=== PATIENT | male | born 1965 | race Two or more races ===

== ENCOUNTER 2020-12-18 09:49 | Inpatient (IN) | payer OTHER ==
[~2020-12-18] VITALS: Ht 170.2 cm; Wt 100.5 kg
[2020-12-18] MEDS ORDERED: QUET50TA15 PO (10:28)
[2020-12-18] MEDS ORDERED: OLAN2.5T29 PO (10:28)
[2020-12-18] MEDS ORDERED: CLON-592 PO (10:28)
[2020-12-18 11:18] LABS: COVID AG,FIA SOURCE NASOPHARYNGEAL
[2020-12-18 11:28] LABS: AMPHET/METH SCREEN,URINE POSITIVE (NEGATIVE); BARBITURATE SCREEN, URINE NEGATIVE (NEGATIVE); BENZODIAZEPINES SCREEN,URINE NEGATIVE (NEGATIVE); CANNABINOID SCREEN,URINE NEGATIVE (NEGATIVE); COCAINE SCREEN,URINE NEGATIVE (NEGATIVE); METHADONE SCREEN, URINE NEGATIVE (NEGATIVE); OPIATE SCREEN,URINE POSITIVE (NEGATIVE)
[2020-12-18 11:40] LABS: APPEARANCE,URINE CLEAR (CLEAR); BILIRUBIN,URINE NEGATIVE (NEGATIVE); GLUCOSE, URINE (UA) NEGATIVE (NEGATIVE); KETONES,URINE NEGATIVE (NEGATIVE); LEUKOCYTE ESTERASE ,URINE NEGATIVE (NEGATIVE); NITRATE,URINE NEGATIVE (NEGATIVE); OCCULT BLOOD,URINE NEGATIVE (NEGATIVE); PH,URINE 7.5 (5.0-8.0); PROTEIN,URINE NEGATIVE (NEGATIVE)
[2020-12-18 11:43] LABS: BASOPHILS % (AUTO) 0.4 % (0.0-2.0); EOSINOPHILS % (AUTO) 4.8 % (1.0-6.0); HEMATOCRIT 39.6 % (41-53); HEMOGLOBIN 13.1 g/dL (13.5-17.5); LYMPHOCYTES # (AUTO) 0.7 K/uL (1.0-4.8); LYMPHOCYTES % (AUTO) 13.3 % (22.0-44.0); MEAN CORPUSCULAR HGB CONC 33.1 G/dL (31.0-37.0); MEAN CORPUSCULAR VOLUME 97 fL (80-100); MONOCYTES # (AUTO) 0.8 K/uL (0.1-1.0); MONOCYTES % (AUTO) 15.5 % (2.0-9.0); NEUTROPHILS # (AUTO) 3.3 K/uL (1.8-7.7); PLATELET COUNT (AUTO) 197 K/uL (150-450); RED BLOOD CELL COUNT(AUTO) 4.09 MIL/uL (4.50-5.90); RED CELL DISTRIBUTION WIDTH 14.7 % (11.5-14.5)
[2020-12-18 11:45] LABS: BACTERIA,URINE None Seen /HPF (None Seen); PHENCYCLIDINE SCREEN,URINE NEGATIVE (NEGATIVE); RBC,URINE None Seen /HPF (0-2); SQUAMOUS EPITHELIAL CELL,UR None Seen /LPF (None Seen); WBC,URINE None Seen /HPF (0-5)
[2020-12-18] MEDS ORDERED: CloNIDine HCL 0.1 MG TABLET PO PRN (11:45)
[2020-12-18] MEDS ORDERED: ONDANSETRON HCL 4 MG TABLET PO PRN (11:45)
[2020-12-18] MEDS ORDERED: DOCUSATE SODIUM 100 MG CAPSULE PO PRN (11:45)
[2020-12-18] MEDS ORDERED: PETROLATUM,WHITE 28 GM JELLY TP PRN (11:45)
[2020-12-18] MEDS ORDERED: MAGNESIUM HYDROXIDE SUSPENSION 30 ML UDCUP PO PRN (11:45)
[2020-12-18] MEDS ORDERED: NICOTINE 14 MG/24 HOUR PATCH TD PRN (11:45)
[2020-12-18] MEDS ORDERED: IBUPROFEN 400 MG TABLET PO PRN (11:45)
[2020-12-18] MEDS ORDERED: ALBUTEROL SULFATE HFA 90 MCG/PUFF 8 GM INHALER IH PRN (11:45)
[2020-12-18] MEDS ORDERED: MAG HYDROX/AL HYDROX/SIMETH ES 30 ML SUSPENSION UDCUP PO PRN (11:45)
[2020-12-18 11:56] LABS: ANION GAP 8 mmol/L (8-16); CALCIUM, TOTAL 8.3 mg/dL (8.8-10.5); CARBON DIOXIDE 30 mmol/L (22-29); CHLORIDE 106 mmol/L (98-107); CREATININE 0.92 mg/dL (0.60-1.30); GLOMERULAR FILTR. RATE CALC > 60 mL/min (>60); GLUCOSE,RANDOM 88 mg/dL (70-110); SODIUM SERUM 144 mmol/L (136-145); UREA NITROGEN, BLOOD 13 mg/dL (7-18)
[2020-12-18 11:58] LABS: B-TYPE NATRIURETIC PEPTIDE 54 pg/mL (0-100)
[2020-12-18 12:18] LABS: ALANINE AMINOTRANSFERASE 45 U/L (12-78); ALBUMIN 3.1 g/dL (3.4-5.0); ALKALINE PHOSPHATASE 73 U/L (46-116); ASPARTATE AMINOTRANSFERASE 58 U/L (15-37); BILIRUBIN,TOTAL 0.3 mg/dL (0.1-1.0); CREATINE KINASE, TOTAL ONLY 498 U/L (39-308); LIPASE 213 U/L (73-393); TOTAL PROTEIN, SERUM 7.8 g/dL (6.4-8.2)
[2020-12-18 12:25] LABS: PROSTATE SPECIFIC ANTIGEN 1.15 ng/mL (0.00-4.00)
[2020-12-18] MEDS ORDERED: *CLINICAL-LEVOFLOXACIN IVPB DOSING CLINICAL ONE (13:15)
[2020-12-18] MEDS ORDERED: SODIUM CHLORIDE 0.9% 1,000 ML IV ONE (13:15)
[2020-12-18 14:08] VITALS: BP 135/88
[2020-12-18] MEDS: LEVOFLOXACIN 500 MG/D5% WATER 100 ML IV SCH (18:35)
[2020-12-18 20:05] VITALS: BP 129/74
[2020-12-18] MEDS: ACETAMINOPHEN 325 MG TABLET PO PRN (21:10)
[2020-12-19 05:20] VITALS: BP 141/87
[2020-12-19] MEDS: ACETAMINOPHEN 325 MG TABLET PO PRN ×2 (05:20→09:03)
[2020-12-19 06:54] LABS: CHOL/HDL RATIO 3.4 (4.2-7.3)
[2020-12-19] MEDS ORDERED: HydrOXYzine PAMOATE 25 MG CAPSULE PO PRN (07:45)
[2020-12-19 08:06] LABS: HIV 1-2 SCREEN 4TH GEN W/RFLX Non Reactive (Non Reactive)
[2020-12-19 08:07] VITALS: BP 140/69
[2020-12-19] MEDS: GuaiFENesin/D-METHORPHAN [SUGAR-FREE] 200-20MG/10 ML SYRUP UDCUP PO PRN (09:04)
[2020-12-19] MEDS: QUEtiapine FUMARATE 25 MG TABLET PO SCH (09:05)
[2020-12-19] MEDS: LEVOFLOXACIN 500 MG/D5% WATER 100 ML IV SCH (14:06)
[2020-12-19 15:35] VITALS: BP 137/77
[2020-12-19 19:40] VITALS: BP 137/87
[2020-12-19] MEDS: QUEtiapine FUMARATE 100 MG TABLET PO SCH (19:43)
[2020-12-20 07:39] VITALS: BP 140/94
[2020-12-20] MEDS: QUEtiapine FUMARATE 25 MG TABLET PO SCH (08:00)
[2020-12-20] MEDS: ACETAMINOPHEN 325 MG TABLET PO PRN ×2 (08:00→18:39)
[2020-12-20] MEDS: GuaiFENesin/D-METHORPHAN [SUGAR-FREE] 200-20MG/10 ML SYRUP UDCUP PO PRN (11:37)
[2020-12-20 11:48] VITALS: BP 121/93
[2020-12-20] MEDS: LEVOFLOXACIN 500 MG/D5% WATER 100 ML IV SCH (15:25)
[2020-12-20] MEDS: TraZODone HCL 100 MG TABLET PO PRN (19:46)
[2020-12-20] MEDS: QUEtiapine FUMARATE 100 MG TABLET PO SCH (19:46)
[2020-12-21] MEDS: QUEtiapine FUMARATE 25 MG TABLET PO SCH (08:08)
[2020-12-21] MEDS: GuaiFENesin/D-METHORPHAN [SUGAR-FREE] 200-20MG/10 ML SYRUP UDCUP PO PRN ×2 (08:43→16:23)
[2020-12-21] MEDS: ACETAMINOPHEN 325 MG TABLET PO PRN (08:43)
[2020-12-21] MEDS: LEVOFLOXACIN 500 MG/D5% WATER 100 ML IV SCH (14:44)
[2020-12-21 15:38] VITALS: BP 117/72
[2020-12-21] MEDS: TraZODone HCL 100 MG TABLET PO PRN (20:02)
[2020-12-21] MEDS: QUEtiapine FUMARATE 100 MG TABLET PO SCH (20:02)
[2020-12-21 20:05] VITALS: BP_SYST 103; BP_SYST 128; BP_DIAS 66; BP_DIAS 83
[2020-12-22 08:04] VITALS: BP 122/92
[2020-12-22] MEDS: QUEtiapine FUMARATE 25 MG TABLET PO SCH (08:13)
[2020-12-22] MEDS: ACETAMINOPHEN 325 MG TABLET PO PRN ×2 (08:15→15:42)
[2020-12-22] MEDS: GuaiFENesin/D-METHORPHAN [SUGAR-FREE] 200-20MG/10 ML SYRUP UDCUP PO PRN ×2 (08:16→15:44)
[2020-12-22 11:07] LABS: HEPATITIS C AB (EIA) >11.0 s/co ratio (0.0-0.9); HEPATITIS C RT-PCR,QNT 2490000 IU/mL
[2020-12-22] MEDS ORDERED: LEVO-72 PO (11:20)
[2020-12-22] MEDS ORDERED: QUET100T PO (11:21)
[2020-12-22] MEDS ORDERED: QUET25TA PO (11:21)
== END 2020-12-22 15:56 | DRG 603 ==
LOC: EMS 10:01 → 6S 11:43
PROVIDERS: ADMIT Internal Medicine; ATTEND Internal Medicine
DX: L03.116 Cellulitis of left lower limb (principal); F19.20 Other psychoactive substance dependence, uncomplicated; F20.0 Paranoid schizophrenia; R45.851 Suicidal ideations; F31.4 Bipolar disorder, current episode depressed, severe, without psychotic features; L03.115 Cellulitis of right lower limb; K74.60 Unspecified cirrhosis of liver; Z20.822 Contact with and (suspected) exposure to COVID-19; F43.10 Post-traumatic stress disorder, unspecified; F31.9 Bipolar disorder, unspecified; Z88.8 Allergy status to other drugs, medicaments and biological substances; Q90.9 Down syndrome, unspecified; Z87.891 Personal history of nicotine dependence
CPT/HCPCS: 71045; 80053; 80061; 80074; 81001; 82550; 83605; 83690; 83880; 84153; 84484; 85025; 87040; 87081; 87389; 87522; 93005; 99285; G0480; J1956; J7030; 36415-L1; 36415-TC

== ENCOUNTER 2021-02-10 18:48 | Inpatient (IN) | payer OTHER ==
[~2021-02-10] VITALS: Ht 170.2 cm; Wt 81.8 kg
[~2021-02-10 18:48] MED LIST: LEVO-72 PO; QUET100T PO; QUET25TA PO
[2021-02-10 20:02] LABS: BASOPHILS % (AUTO) 0.5 % (0.0-2.0); EOSINOPHILS % (AUTO) 1.8 % (1.0-6.0); HEMATOCRIT 49.4 % (41-53); LYMPHOCYTES # (AUTO) 3.5 K/uL (1.0-4.8); LYMPHOCYTES % (AUTO) 33.3 % (22.0-44.0); MEAN CORPUSCULAR HEMOGLOBIN 31.2 pg (26.0-34.0); MEAN CORPUSCULAR HGB CONC 34.4 G/dL (31.0-37.0); MEAN CORPUSCULAR VOLUME 90 fL (80-100); MONOCYTES # (AUTO) 0.9 K/uL (0.1-1.0); MONOCYTES % (AUTO) 8.4 % (2.0-9.0); NEUTROPHILS # (AUTO) 5.8 K/uL (1.8-7.7); PLATELET COUNT (AUTO) 232 K/uL (150-450); RED BLOOD CELL COUNT(AUTO) 5.46 MIL/uL (4.50-5.90); RED CELL DISTRIBUTION WIDTH 13.8 % (11.5-14.5)
[2021-02-10 20:14] LABS: ANION GAP 9 mmol/L (8-16); CALCIUM, TOTAL 9.1 mg/dL (8.8-10.5); CARBON DIOXIDE 29 mmol/L (22-29); CHLORIDE 104 mmol/L (98-107); CREATININE 0.94 mg/dL (0.60-1.30); GLOMERULAR FILTR. RATE CALC > 60 mL/min (>60); GLUCOSE,RANDOM 91 mg/dL (70-110); POTASSIUM 4.1 mmol/L (3.5-5.1); SODIUM SERUM 142 mmol/L (136-145); UREA NITROGEN, BLOOD 20 mg/dL (7-18)
[2021-02-10 20:20] LABS: ALANINE AMINOTRANSFERASE 48 U/L (12-78); ALKALINE PHOSPHATASE 67 U/L (46-116); ASPARTATE AMINOTRANSFERASE 35 U/L (15-37); BILIRUBIN,TOTAL 0.6 mg/dL (0.1-1.0); TOTAL PROTEIN, SERUM 8.4 g/dL (6.4-8.2)
[2021-02-10] MEDS ORDERED: ACETAMINOPHEN 325 MG TABLET PO PRN ×2 (22:15→22:30)
[2021-02-10] MEDS ORDERED: ONDANSETRON HCL 4 MG/2 ML VIAL IVP PRN (22:15)
[2021-02-10] MEDS ORDERED: MAGNESIUM HYDROXIDE SUSPENSION 30 ML UDCUP PO PRN (22:30)
[2021-02-10] MEDS ORDERED: FLUO20CA36 PO (23:51)
[2021-02-10] MEDS ORDERED: OLAN10TA74 PO (23:51)
[2021-02-11 00:27] LABS: COVID AG,FIA SOURCE NASOPHARYNGEAL
[2021-02-11] MEDS: FAMOTIDINE 20 MG TABLET PO SCH (08:08)
[2021-02-11 10:26] VITALS: BP 129/93
[2021-02-11 19:43] VITALS: BP 112/66
[2021-02-11] MEDS: ZOLPIDEM TARTRATE 5 MG TABLET PO PRN (20:57)
[2021-02-12 04:05] VITALS: BP 101/69
[2021-02-12 08:05] VITALS: BP 110/72
[2021-02-12] MEDS: FAMOTIDINE 20 MG TABLET PO SCH (09:39)
[2021-02-12 20:06] VITALS: BP 114/76
[2021-02-12] MEDS: TraZODone HCL 50 MG TABLET PO SCH (20:53)
[2021-02-12] MEDS: OLANZapine 10 MG TABLET PO SCH (20:54)
[2021-02-12] MEDS: FLUoxetine HCL 20 MG CAPSULE PO SCH (20:54)
[2021-02-12] MEDS: ZOLPIDEM TARTRATE 5 MG TABLET PO PRN (22:06)
[2021-02-13 08:15] VITALS: BP 113/65
[2021-02-13] MEDS: FAMOTIDINE 20 MG TABLET PO SCH (08:42)
[2021-02-13 20:00] VITALS: BP 99/72
[2021-02-13 20:27] VITALS: BP 105/64
[2021-02-13] MEDS: FLUoxetine HCL 20 MG CAPSULE PO SCH (20:29)
[2021-02-13] MEDS: TraZODone HCL 50 MG TABLET PO SCH (20:29)
[2021-02-13] MEDS: OLANZapine 10 MG TABLET PO SCH (20:29)
[2021-02-14 04:12] VITALS: BP 100/74
[2021-02-14 07:34] VITALS: BP 102/69
[2021-02-14] MEDS: FAMOTIDINE 20 MG TABLET PO SCH (08:20)
[2021-02-14 19:35] VITALS: BP 102/75
[2021-02-14] MEDS: OLANZapine 10 MG TABLET PO SCH (20:05)
[2021-02-14] MEDS: TraZODone HCL 50 MG TABLET PO SCH (20:05)
[2021-02-14] MEDS: FLUoxetine HCL 20 MG CAPSULE PO SCH (20:05)
[2021-02-15 05:19] VITALS: BP 98/66
[2021-02-15 07:17] VITALS: BP 105/57
[2021-02-15] MEDS: FAMOTIDINE 20 MG TABLET PO SCH (08:11)
[2021-02-15 15:37] VITALS: BP 117/69
[2021-02-15 20:00] VITALS: BP 107/70
[2021-02-15] MEDS: TraZODone HCL 50 MG TABLET PO SCH (20:24)
[2021-02-15] MEDS: OLANZapine 10 MG TABLET PO SCH (20:25)
[2021-02-15] MEDS: FLUoxetine HCL 20 MG CAPSULE PO SCH (20:25)
[2021-02-16 04:19] VITALS: BP 104/75
[2021-02-16 07:43] VITALS: BP 123/86
[2021-02-16] MEDS: FAMOTIDINE 20 MG TABLET PO SCH (07:58)
[2021-02-16 15:52] VITALS: BP 103/66
== END 2021-02-16 18:35 | DRG 885 ==
LOC: EMS 18:51 → 6S 02-11 09:05
PROVIDERS: ADMIT Internal Medicine; ATTEND Internal Medicine
DX: F20.9 Schizophrenia, unspecified (principal); F11.20 Opioid dependence, uncomplicated; F32.9 Major depressive disorder, single episode, unspecified; F43.10 Post-traumatic stress disorder, unspecified; K74.60 Unspecified cirrhosis of liver; B19.20 Unspecified viral hepatitis C without hepatic coma; F17.210 Nicotine dependence, cigarettes, uncomplicated; Z20.822 Contact with and (suspected) exposure to COVID-19; F14.90 Cocaine use, unspecified, uncomplicated; F32.A Depression, unspecified; F41.9 Anxiety disorder, unspecified; Z86.19 Personal history of other infectious and parasitic diseases; Z88.8 Allergy status to other drugs, medicaments and biological substances; Z98.890 Other specified postprocedural states; Z71.89 Other specified counseling
CPT/HCPCS: 80053; 85025; 99285; G0480

== ENCOUNTER 2021-03-03 18:52 | Inpatient (IN) | payer OTHER ==
[~2021-03-03] VITALS: Ht 167.6 cm; Wt 87.3 kg
[~2021-03-03 18:52] MED LIST changes: +FLUO20CA36 PO; -LEVO-72 PO; +OLAN10TA74 PO; -QUET100T PO; -QUET25TA PO
[2021-03-03 19:49] LABS: BASOPHILS % (AUTO) 0.4 % (0.0-2.0); EOSINOPHILS % (AUTO) 1.9 % (1.0-6.0); HEMATOCRIT 48.6 % (41-53); HEMOGLOBIN 16.7 g/dL (13.5-17.5); LYMPHOCYTES # (AUTO) 2.1 K/uL (1.0-4.8); LYMPHOCYTES % (AUTO) 22.5 % (22.0-44.0); MEAN CORPUSCULAR HEMOGLOBIN 31.1 pg (26.0-34.0); MEAN CORPUSCULAR HGB CONC 34.3 G/dL (31.0-37.0); MEAN CORPUSCULAR VOLUME 91 fL (80-100); MONOCYTES # (AUTO) 1.1 K/uL (0.1-1.0); MONOCYTES % (AUTO) 11.1 % (2.0-9.0); NEUTROPHILS # (AUTO) 6.1 K/uL (1.8-7.7); NEUTROPHILS % (AUTO) 64.1 % (40.0-70.0); PLATELET COUNT (AUTO) 198 K/uL (150-450); RED BLOOD CELL COUNT(AUTO) 5.36 MIL/uL (4.50-5.90); RED CELL DISTRIBUTION WIDTH 14.2 % (11.5-14.5)
[2021-03-03] MEDS ORDERED: ONDANSETRON HCL 4 MG/2 ML VIAL IVP PRN (20:00)
[2021-03-03] MEDS ORDERED: ACETAMINOPHEN 325 MG TABLET PO PRN (20:00)
[2021-03-03 20:10] LABS: ANION GAP 6 mmol/L (8-16); CALCIUM, TOTAL 8.8 mg/dL (8.8-10.5); CARBON DIOXIDE 29 mmol/L (22-29); CHLORIDE 105 mmol/L (98-107); CREATININE 0.88 mg/dL (0.60-1.30); GLOMERULAR FILTR. RATE CALC > 60 mL/min (>60); GLUCOSE,RANDOM 155 mg/dL (70-110); POTASSIUM 3.7 mmol/L (3.5-5.1); SODIUM SERUM 140 mmol/L (136-145); UREA NITROGEN, BLOOD 15 mg/dL (7-18)
[2021-03-03 20:15] LABS: ALANINE AMINOTRANSFERASE 43 U/L (12-78); ALBUMIN 3.9 g/dL (3.4-5.0); ALKALINE PHOSPHATASE 75 U/L (46-116); ASPARTATE AMINOTRANSFERASE 28 U/L (15-37); BILIRUBIN,TOTAL 0.3 mg/dL (0.1-1.0); TOTAL PROTEIN, SERUM 8.3 g/dL (6.4-8.2)
[2021-03-03 23:54] LABS: COVID AG,FIA SOURCE NASOPHARYNGEAL
[2021-03-04] MEDS ORDERED: ZOLP-280 PO (00:04)
[2021-03-04] MEDS: HEPARIN SODIUM,PORCINE 5,000 UNITS/ML VIAL SQ SCH ×3 (00:17→16:24)
[2021-03-04 00:58] VITALS: BP 127/88
[2021-03-04 01:05] LABS: AMPHET/METH SCREEN,URINE NEGATIVE (NEGATIVE); BARBITURATE SCREEN, URINE NEGATIVE (NEGATIVE); BENZODIAZEPINES SCREEN,URINE NEGATIVE (NEGATIVE); CANNABINOID SCREEN,URINE NEGATIVE (NEGATIVE); COCAINE SCREEN,URINE NEGATIVE (NEGATIVE); METHADONE SCREEN, URINE NEGATIVE (NEGATIVE); OPIATE SCREEN,URINE NEGATIVE (NEGATIVE)
[2021-03-04 01:19] LABS: PHENCYCLIDINE SCREEN,URINE NEGATIVE (NEGATIVE)
[2021-03-04] MEDS: ZOLPIDEM TARTRATE 5 MG TABLET PO SCH ×2 (01:43→21:25)
[2021-03-04 03:29] VITALS: BP 131/92
[2021-03-04 07:27] LABS: BASOPHILS % (AUTO) 0.4 % (0.0-2.0); EOSINOPHILS % (AUTO) 2.4 % (1.0-6.0); HEMATOCRIT 46.1 % (41-53); HEMOGLOBIN 15.7 g/dL (13.5-17.5); LYMPHOCYTES # (AUTO) 2.2 K/uL (1.0-4.8); LYMPHOCYTES % (AUTO) 25.5 % (22.0-44.0); MEAN CORPUSCULAR HEMOGLOBIN 30.7 pg (26.0-34.0); MEAN CORPUSCULAR HGB CONC 34.1 G/dL (31.0-37.0); MEAN CORPUSCULAR VOLUME 90 fL (80-100); MONOCYTES # (AUTO) 1.4 K/uL (0.1-1.0); MONOCYTES % (AUTO) 15.9 % (2.0-9.0); NEUTROPHILS # (AUTO) 4.8 K/uL (1.8-7.7); NEUTROPHILS % (AUTO) 55.8 % (40.0-70.0); PLATELET COUNT (AUTO) 196 K/uL (150-450); RED BLOOD CELL COUNT(AUTO) 5.13 MIL/uL (4.50-5.90); RED CELL DISTRIBUTION WIDTH 14.4 % (11.5-14.5)
[2021-03-04 07:43] LABS: ANION GAP 7 mmol/L (8-16); CALCIUM, TOTAL 8.6 mg/dL (8.8-10.5); CARBON DIOXIDE 28 mmol/L (22-29); CHLORIDE 104 mmol/L (98-107); CREATININE 0.81 mg/dL (0.60-1.30); GLOMERULAR FILTR. RATE CALC > 60 mL/min (>60); GLUCOSE,RANDOM 91 mg/dL (70-110); POTASSIUM 3.7 mmol/L (3.5-5.1); SODIUM SERUM 139 mmol/L (136-145); UREA NITROGEN, BLOOD 11 mg/dL (7-18)
[2021-03-04 08:29] VITALS: BP 114/73
[2021-03-04] MEDS ORDERED: FLUoxetine HCL 20 MG CAPSULE PO SCH (09:00)
[2021-03-04] MEDS: OLANZapine 10 MG TABLET PO SCH (09:18)
[2021-03-04] MEDS ORDERED: FLUoxetine HCL 20 MG CAPSULE PO ONE (12:30)
[2021-03-04 16:08] VITALS: BP 120/88
[2021-03-04] MEDS ORDERED: ZOLPIDEM TARTRATE 5 MG TABLET PO SCH (21:00)
[2021-03-04 21:07] VITALS: BP 122/76
[2021-03-04] MEDS: TraZODone HCL 50 MG TABLET PO SCH (21:25)
[2021-03-05] MEDS: HEPARIN SODIUM,PORCINE 5,000 UNITS/ML VIAL SQ SCH ×4 (00:21→23:51)
[2021-03-05 04:25] VITALS: BP 106/69
[2021-03-05 08:02] VITALS: BP 108/70
[2021-03-05] MEDS: OLANZapine 10 MG TABLET PO SCH (09:21)
[2021-03-05] MEDS: FLUoxetine HCL 20 MG CAPSULE PO SCH (09:21)
[2021-03-05 15:31] VITALS: BP 116/72
[2021-03-05 19:25] VITALS: BP 107/64
[2021-03-05] MEDS: TraZODone HCL 50 MG TABLET PO SCH (19:47)
[2021-03-05] MEDS: ZOLPIDEM TARTRATE 5 MG TABLET PO SCH (19:47)
[2021-03-06 04:32] VITALS: BP 106/61
[2021-03-06] MEDS: OLANZapine 10 MG TABLET PO SCH (08:14)
[2021-03-06] MEDS: HEPARIN SODIUM,PORCINE 5,000 UNITS/ML VIAL SQ SCH ×3 (08:14→23:13)
[2021-03-06] MEDS: FLUoxetine HCL 20 MG CAPSULE PO SCH (08:14)
[2021-03-06 09:00] VITALS: BP 114/67
[2021-03-06] MEDS: ZOLPIDEM TARTRATE 5 MG TABLET PO SCH (20:32)
[2021-03-06] MEDS: TraZODone HCL 50 MG TABLET PO SCH (20:32)
[2021-03-06 20:37] VITALS: BP 115/68
[2021-03-07 04:30] VITALS: BP 107/60
[2021-03-07 07:36] VITALS: BP 99/61
[2021-03-07] MEDS: OLANZapine 10 MG TABLET PO SCH (07:57)
[2021-03-07] MEDS: FLUoxetine HCL 20 MG CAPSULE PO SCH (07:57)
[2021-03-07] MEDS: HEPARIN SODIUM,PORCINE 5,000 UNITS/ML VIAL SQ SCH ×3 (07:57→23:12)
[2021-03-07 15:30] VITALS: BP 102/67
[2021-03-07 19:35] VITALS: BP 119/73
[2021-03-07] MEDS: ZOLPIDEM TARTRATE 5 MG TABLET PO SCH (20:52)
[2021-03-07] MEDS: TraZODone HCL 50 MG TABLET PO SCH (20:52)
[2021-03-08 04:25] VITALS: BP 103/69
[2021-03-08] MEDS: FLUoxetine HCL 20 MG CAPSULE PO SCH (07:57)
[2021-03-08] MEDS: OLANZapine 10 MG TABLET PO SCH (07:57)
[2021-03-08] MEDS: HEPARIN SODIUM,PORCINE 5,000 UNITS/ML VIAL SQ SCH ×3 (07:58→23:12)
[2021-03-08 08:43] VITALS: BP 116/75
[2021-03-08] MEDS ORDERED: FLUoxetine HCL 20 MG CAPSULE PO ONE (08:45)
[2021-03-08] MEDS ORDERED: FLUoxetine HCL 20 MG CAPSULE PO SCH (09:00)
[2021-03-08 16:35] VITALS: BP 111/69
[2021-03-08 20:17] VITALS: BP 110/64
[2021-03-08] MEDS: ZOLPIDEM TARTRATE 5 MG TABLET PO SCH (20:40)
[2021-03-08] MEDS: TraZODone HCL 50 MG TABLET PO SCH (20:40)
[2021-03-09 04:37] VITALS: BP 112/71
[2021-03-09 08:01] VITALS: BP 115/72
[2021-03-09] MEDS: OLANZapine 10 MG TABLET PO SCH (09:35)
[2021-03-09] MEDS: HEPARIN SODIUM,PORCINE 5,000 UNITS/ML VIAL SQ SCH ×3 (09:36→23:23)
[2021-03-09] MEDS: FLUoxetine HCL 20 MG CAPSULE PO SCH (09:36)
[2021-03-09 20:16] VITALS: BP 113/72
[2021-03-09] MEDS: TraZODone HCL 50 MG TABLET PO SCH (20:19)
[2021-03-09] MEDS: ZOLPIDEM TARTRATE 5 MG TABLET PO SCH (20:19)
[2021-03-10 05:12] VITALS: BP 98/70
[2021-03-10] MEDS: OLANZapine 10 MG TABLET PO SCH (08:21)
[2021-03-10] MEDS: FLUoxetine HCL 20 MG CAPSULE PO SCH (08:21)
[2021-03-10] MEDS: HEPARIN SODIUM,PORCINE 5,000 UNITS/ML VIAL SQ SCH (08:21)
[2021-03-10 09:05] VITALS: BP 116/72
[2021-03-10] MEDS ORDERED: TRAZ-252 PO (13:32)
[2021-03-10 15:48] VITALS: BP 91/68
== END 2021-03-10 16:10 | DRG 885 ==
LOC: EMS 18:54 → 6S 03-04 00:18
PROVIDERS: ADMIT Internal Medicine; ATTEND Internal Medicine
DX: F25.1 Schizoaffective disorder, depressive type (principal); R45.851 Suicidal ideations; Z68.31 Body mass index [BMI] 31.0-31.9, adult; G47.00 Insomnia, unspecified; E66.9 Obesity, unspecified; F32.9 Major depressive disorder, single episode, unspecified; Z20.822 Contact with and (suspected) exposure to COVID-19; R73.9 Hyperglycemia, unspecified; F43.10 Post-traumatic stress disorder, unspecified; Z86.73 Personal history of transient ischemic attack (TIA), and cerebral infarction without residual deficits; Z79.899 Other long term (current) drug therapy; Z88.8 Allergy status to other drugs, medicaments and biological substances
CPT/HCPCS: 80048; 80053; 83036; 83735; 85025; 99285; G0480; J1644

== ENCOUNTER 2022-02-02 18:51 | Inpatient (IN) | payer OTHER ==
[~2022-02-02] VITALS: Ht 170.2 cm; Wt 81.8 kg
[~2022-02-02 18:51] MED LIST changes: +TRAZ-252 PO
[2022-02-02] MEDS ORDERED: KETOROLAC TROMETHAMINE 30 MG/ML VIAL IVP ONE (19:45)
[2022-02-02] MEDS ORDERED: SODIUM CHLORIDE 0.9% 1,000 ML IV ONE (19:45)
[2022-02-02] MEDS ORDERED: ONDANSETRON HCL 4 MG/2 ML VIAL IVP ONE (19:45)
[2022-02-02 20:11] LABS: COVID AG,FIA SOURCE NASOPHARYNGEAL
[2022-02-02 20:20] LABS: BASOPHILS % (AUTO) 0.6 % (0.0-2.0); EOSINOPHILS % (AUTO) 2.6 % (1.0-6.0); HEMATOCRIT 51.8 % (41-53); LYMPHOCYTES # (AUTO) 2.1 K/uL (1.0-4.8); MEAN CORPUSCULAR HEMOGLOBIN 28.8 pg (26.0-34.0); MEAN CORPUSCULAR HGB CONC 32.7 G/dL (31.0-37.0); MEAN CORPUSCULAR VOLUME 88 fL (80-100); MONOCYTES # (AUTO) 1.2 K/uL (0.1-1.0); MONOCYTES % (AUTO) 12.5 % (2.0-9.0); NEUTROPHILS # (AUTO) 6.3 K/uL (1.8-7.7); NEUTROPHILS % (AUTO) 63.3 % (40.0-70.0); PLATELET COUNT (AUTO) 306 K/uL (150-450); RED CELL DISTRIBUTION WIDTH 14.4 % (11.5-14.5)
[2022-02-02 20:28] LABS: ANION GAP 11 mmol/L (8-16); CALCIUM, TOTAL 9.3 mg/dL (8.8-10.5); CARBON DIOXIDE 27 mmol/L (22-29); CHLORIDE 99 mmol/L (98-107); CREATININE 0.98 mg/dL (0.60-1.30); GLUCOSE,RANDOM 99 mg/dL (70-110); POTASSIUM 3.5 mmol/L (3.5-5.1); SODIUM SERUM 137 mmol/L (136-145); UREA NITROGEN, BLOOD 15 mg/dL (7-18)
[2022-02-02 20:29] LABS: GLOMERULAR FILTR. RATE CALC > 60 mL/min (>60)
[2022-02-02] MEDS ORDERED: ACETAMINOPHEN 325 MG TABLET PO PRN (20:30)
[2022-02-02] MEDS ORDERED: ONDANSETRON HCL 4 MG/2 ML VIAL IVP PRN ×2 (20:30→20:45)
[2022-02-02 20:34] LABS: ALANINE AMINOTRANSFERASE 51 U/L (12-78); ALBUMIN 3.6 g/dL (3.4-5.0); ALKALINE PHOSPHATASE 117 U/L (46-116); ASPARTATE AMINOTRANSFERASE 51 U/L (15-37); BILIRUBIN,TOTAL 0.5 mg/dL (0.1-1.0); TOTAL PROTEIN, SERUM 9.2 g/dL (6.4-8.2)
[2022-02-02] MEDS ORDERED: LORazepam 2 MG TABLET PO PRN (20:45)
[2022-02-02] MEDS: CeFAZolin 1 GM/DEXTROSE 50 ML IV SCH (21:14)
[2022-02-02] MEDS: HEPARIN SODIUM,PORCINE 5,000 UNITS/ML VIAL SQ SCH (23:12)
[2022-02-03] VITALS: BP 142/95
[2022-02-03 04:30] VITALS: BP 144/89
[2022-02-03] MEDS ORDERED: SODIUM CHLORIDE 0.9% 500 ML IV ONE (04:50)
[2022-02-03] MEDS: CeFAZolin 1 GM/DEXTROSE 50 ML IV SCH ×3 (05:26→19:53)
[2022-02-03] MEDS ORDERED: LORazepam 2 MG TABLET PO PRN (07:00)
[2022-02-03 07:46] LABS: AMPHET/METH SCREEN,URINE POSITIVE (NEGATIVE); BARBITURATE SCREEN, URINE NEGATIVE (NEGATIVE); BENZODIAZEPINES SCREEN,URINE NEGATIVE (NEGATIVE); CANNABINOID SCREEN,URINE NEGATIVE (NEGATIVE); COCAINE SCREEN,URINE NEGATIVE (NEGATIVE); METHADONE SCREEN, URINE NEGATIVE (NEGATIVE); OPIATE SCREEN,URINE NEGATIVE (NEGATIVE)
[2022-02-03 07:47] LABS: PHENCYCLIDINE SCREEN,URINE NEGATIVE (NEGATIVE)
[2022-02-03] MEDS: HEPARIN SODIUM,PORCINE 5,000 UNITS/ML VIAL SQ SCH ×2 (08:17→16:31)
[2022-02-03] MEDS ORDERED: LORazepam 1 MG TABLET PO PRN (10:45)
[2022-02-03 15:49] VITALS: BP 153/90
[2022-02-03] MEDS ORDERED: DICYCLOMINE HCL 10 MG CAPSULE PO PRN (17:00)
[2022-02-03] MEDS ORDERED: HydrOXYzine PAMOATE 50 MG CAPSULE PO PRN ×2 (17:00)
[2022-02-03] MEDS ORDERED: GuaiFENesin/D-METHORPHAN [SUGAR-FREE] 200-20MG/10 ML SYRUP UDCUP PO PRN (17:00)
[2022-02-03] MEDS ORDERED: CloNIDine HCL 0.1 MG TABLET PO PRN (17:00)
[2022-02-03] MEDS ORDERED: IBUPROFEN 600 MG TABLET PO PRN (17:00)
[2022-02-03] MEDS ORDERED: CYANOCOBALAMIN 1,000 MCG/ML VIAL IM ONE (17:00)
[2022-02-03] MEDS ORDERED: MAG HYDROX/AL HYDROX/SIMETH ES 30 ML SUSPENSION UDCUP PO PRN (17:00)
[2022-02-03] MEDS ORDERED: LOPERAMIDE HCL 2 MG CAPSULE PO PRN (17:00)
[2022-02-03] MEDS ORDERED: DIAZEPAM 10 MG TABLET PO PRN (17:00)
[2022-02-03 17:23] VITALS: BP 153/90
[2022-02-03] MEDS: THIAMINE 100 MG TABLET PO SCH (19:53)
[2022-02-03] MEDS: OLANZapine 5 MG TABLET PO SCH (19:53)
[2022-02-03 19:59] VITALS: BP 124/96
[2022-02-04] MEDS: HEPARIN SODIUM,PORCINE 5,000 UNITS/ML VIAL SQ SCH ×3 (00:11→15:40)
[2022-02-04] MEDS: CeFAZolin 1 GM/DEXTROSE 50 ML IV SCH ×3 (04:10→19:52)
[2022-02-04] MEDS ORDERED: DIAZEPAM 10 MG TABLET PO PRN (07:00)
[2022-02-04] MEDS: MULTIVITAMINS WITH MINERALS, THERAPEUTIC TABLET PO SCH (08:35)
[2022-02-04] MEDS: THIAMINE 100 MG TABLET PO SCH ×2 (08:35→20:00)
[2022-02-04] MEDS: FOLIC ACID 1 MG TABLET PO SCH (08:35)
[2022-02-04] MEDS ORDERED: DIAZEPAM 10 MG TABLET PO SCH (09:00)
[2022-02-04] MEDS: LORazepam 2 MG/ML VIAL IVP PRN ×2 (09:04→19:20)
[2022-02-04 16:07] VITALS: BP 149/109
[2022-02-04 19:45] VITALS: BP 160/125
[2022-02-04] MEDS: OLANZapine 5 MG TABLET PO SCH (20:00)
[2022-02-04] MEDS: ACETAMINOPHEN 325 MG TABLET PO PRN (20:33)
[2022-02-04 21:35] VITALS: BP 143/90
[2022-02-05] MEDS: HEPARIN SODIUM,PORCINE 5,000 UNITS/ML VIAL SQ SCH ×3 (00:10→16:09)
[2022-02-05] MEDS: CeFAZolin 1 GM/DEXTROSE 50 ML IV SCH ×3 (04:40→20:22)
[2022-02-05] MEDS ORDERED: LORazepam 1 MG TABLET PO PRN (07:00)
[2022-02-05 07:20] VITALS: BP 140/88
[2022-02-05] MEDS: FOLIC ACID 1 MG TABLET PO SCH (08:04)
[2022-02-05] MEDS: MULTIVITAMINS WITH MINERALS, THERAPEUTIC TABLET PO SCH (08:04)
[2022-02-05] MEDS: THIAMINE 100 MG TABLET PO SCH ×2 (08:04→20:21)
[2022-02-05] MEDS ORDERED: LORazepam 1 MG TABLET PO SCH (09:00)
[2022-02-05] MEDS: CLOTRIMAZOLE 1% 15 GM CREAM TP SCH ×2 (13:28→21:00)
[2022-02-05 15:04] VITALS: BP 146/92
[2022-02-05 19:42] VITALS: BP 141/73
[2022-02-05] MEDS: OLANZapine 5 MG TABLET PO SCH (20:21)
[2022-02-05] MEDS: LORazepam 2 MG/ML VIAL IVP PRN (20:22)
[2022-02-06 04:20] VITALS: BP 130/90
[2022-02-06] MEDS: CeFAZolin 1 GM/DEXTROSE 50 ML IV SCH (04:23)
[2022-02-06] MEDS ORDERED: DIAZEPAM 5 MG TABLET PO PRN (07:00)
[2022-02-06] MEDS ORDERED: LORazepam 1 MG TABLET PO PRN (07:00)
[2022-02-06] MEDS: HEPARIN SODIUM,PORCINE 5,000 UNITS/ML VIAL SQ SCH ×4 (08:23→23:28)
[2022-02-06] MEDS: FOLIC ACID 1 MG TABLET PO SCH (08:23)
[2022-02-06] MEDS: MULTIVITAMINS WITH MINERALS, THERAPEUTIC TABLET PO SCH (08:23)
[2022-02-06] MEDS: THIAMINE 100 MG TABLET PO SCH ×2 (08:23→20:26)
[2022-02-06 08:31] VITALS: BP 123/88
[2022-02-06] MEDS ORDERED: DIAZEPAM 5 MG TABLET PO SCH (09:00)
[2022-02-06 09:12] LABS: BASOPHILS % (AUTO) 0.6 % (0.0-2.0); EOSINOPHILS % (AUTO) 2.5 % (1.0-6.0); HEMATOCRIT 51.5 % (41-53); HEMOGLOBIN 16.9 g/dL (13.5-17.5); LYMPHOCYTES # (AUTO) 2.3 K/uL (1.0-4.8); LYMPHOCYTES % (AUTO) 29.6 % (22.0-44.0); MEAN CORPUSCULAR HGB CONC 32.9 G/dL (31.0-37.0); MEAN CORPUSCULAR VOLUME 88 fL (80-100); MONOCYTES # (AUTO) 0.8 K/uL (0.1-1.0); MONOCYTES % (AUTO) 9.7 % (2.0-9.0); NEUTROPHILS # (AUTO) 4.6 K/uL (1.8-7.7); NEUTROPHILS % (AUTO) 57.6 % (40.0-70.0); PLATELET COUNT (AUTO) 317 K/uL (150-450); RED BLOOD CELL COUNT(AUTO) 5.85 MIL/uL (4.50-5.90); RED CELL DISTRIBUTION WIDTH 14.8 % (11.5-14.5)
[2022-02-06 09:24] LABS: ANION GAP 5 mmol/L (8-16); CALCIUM, TOTAL 8.9 mg/dL (8.8-10.5); CARBON DIOXIDE 30 mmol/L (22-29); CHLORIDE 100 mmol/L (98-107); CREATININE 0.93 mg/dL (0.60-1.30); GLUCOSE,RANDOM 127 mg/dL (70-110); POTASSIUM 4.2 mmol/L (3.5-5.1); SODIUM SERUM 135 mmol/L (136-145); UREA NITROGEN, BLOOD 16 mg/dL (7-18)
[2022-02-06 09:27] LABS: GLOMERULAR FILTR. RATE CALC > 60 mL/min (>60)
[2022-02-06] MEDS: SULFAMETHOX/TRIMETH DS 800-160 MG/TABLET PO SCH ×2 (12:00→20:25)
[2022-02-06] MEDS: ACETAMINOPHEN 325 MG TABLET PO PRN (15:20)
[2022-02-06] MEDS: CLOTRIMAZOLE 1% 15 GM CREAM TP SCH ×2 (15:20→20:26)
[2022-02-06 16:13] VITALS: BP 116/81
[2022-02-06] MEDS: OLANZapine 5 MG TABLET PO SCH (20:25)
[2022-02-07] MEDS ORDERED: DIAZEPAM 5 MG TABLET PO PRN (07:00)
[2022-02-07 08:05] VITALS: BP 131/84
[2022-02-07] MEDS: SULFAMETHOX/TRIMETH DS 800-160 MG/TABLET PO SCH (08:54)
[2022-02-07] MEDS: CLOTRIMAZOLE 1% 15 GM CREAM TP SCH (08:54)
[2022-02-07] MEDS: FOLIC ACID 1 MG TABLET PO SCH (08:55)
[2022-02-07] MEDS: THIAMINE 100 MG TABLET PO SCH (08:55)
[2022-02-07] MEDS: MULTIVITAMINS WITH MINERALS, THERAPEUTIC TABLET PO SCH (08:55)
[2022-02-07] MEDS: HEPARIN SODIUM,PORCINE 5,000 UNITS/ML VIAL SQ SCH (08:56)
[2022-02-07 09:09] LABS: CHOL/HDL RATIO 3.3 (4.2-7.3)
[2022-02-07] MEDS ORDERED: CLOT15CR29 TP (09:55)
[2022-02-07] MEDS ORDERED: SULF-261 PO (09:57)
[2022-02-07] MEDS ORDERED: OLAN5TAB52 PO (09:57)
[2022-02-07] MEDS ORDERED: ACET-2247 PO (09:59)
[2022-02-07] MEDS ORDERED: MULT-248 PO (10:02)
[2022-02-07] MEDS ORDERED: MAG30ORA11 PO (10:03)
== END 2022-02-07 15:00 | DRG 603 ==
LOC: EMS 18:57 → 6S 22:04
PROVIDERS: ADMIT Internal Medicine; ATTEND Internal Medicine
DX: L03.116 Cellulitis of left lower limb (principal); F15.13 Other stimulant abuse with withdrawal; F20.0 Paranoid schizophrenia; F11.20 Opioid dependence, uncomplicated; F13.20 Sedative, hypnotic or anxiolytic dependence, uncomplicated; R45.851 Suicidal ideations; F10.139 Alcohol abuse with withdrawal, unspecified; F20.9 Schizophrenia, unspecified; F19.10 Other psychoactive substance abuse, uncomplicated; T63.301A Toxic effect of unspecified spider venom, accidental (unintentional), initial encounter; F41.9 Anxiety disorder, unspecified; R74.8 Abnormal levels of other serum enzymes; F15.10 Other stimulant abuse, uncomplicated; B35.6 Tinea cruris; Z86.73 Personal history of transient ischemic attack (TIA), and cerebral infarction without residual deficits; Y92.89 Other specified places as the place of occurrence of the external cause; Z88.8 Allergy status to other drugs, medicaments and biological substances; Z79.899 Other long term (current) drug therapy
CPT/HCPCS: 80048; 80053; 80061; 80307; 85025; 87481; 99285; G0480; J0690; J1644; J1885; J2060; J2405; J3420; J7030; J7040